=== PATIENT | female | born 1955 | race Native Hawaiian/Other Pacific Islander ===

== ENCOUNTER 2019-06-30 05:19 | Emergency (ER) | payer OTHER ==
[~2019-06-30] VITALS: Ht 170.2 cm; Wt 90.7 kg
[2019-06-30 05:21] VITALS: BP 151/90; Ht 170.2 cm; Wt 90.7 kg
[2019-06-30 06:47] LABS: BASOPHIL % 0.4 % (0-2); PLATELET COUNT 364 x10^3mcL (130-400); RED CELL DISTRIBUTION WIDTH 13.5 % (11.5-14.5)
[2019-06-30 07:09] LABS: CARBON DIOXIDE 30.4 mmol/L (21-32); CHLORIDE SERUM 101 mmol/L (98-107); POTASSIUM SERUM 3.4 mmol/L (3.5-5.1); SODIUM SERUM 141 mmol/L (136-145)
[2019-06-30 07:16] LABS: CALCIUM 9.3 mg/dL (8.5-10.1); CREATININE SERUM 0.9 mg/dL (0.6-1.0); GFR1 > 60 mL/min; GLUCOSE SERUM 120 mg/dL (74-106)
[2019-06-30 07:34] LABS: FREE T4 1.21 ng/dL (0.76-1.46)
[2019-06-30 07:51] LABS: CHOLESTEROL/HDL RATIO 2.9
[2019-06-30 08:33] LABS: UA SPECIFIC GRAVITY <=1.005 (1.005-1.035); microscopic required? YES; urine erythrocyte TRACE (NEGATIVE)
== END 2019-06-30 08:45 | disposition home or self-care (01) ==
LOC: ED 05:19
PROVIDERS: Emergency Medicine
DX: R42 Dizziness and giddiness (principal); E87.6 Hypokalemia; I10 Essential (primary) hypertension; E11.9 Type 2 diabetes mellitus without complications; R11.0 Nausea; R05 Cough; H93.12 Tinnitus, left ear
CPT/HCPCS: 84439; J7030; J8597; Q0092